=== PATIENT | male | born 1975 | race Hispanic/Latino ===

== ENCOUNTER → 2020-03-12 | Outpatient (CLI) | payer BC, OTHER ==
[~2020-03-12] MED LIST: NAPROXEN250 MG PO; TIZANIDINE HCL4 MG PO
== END ==
LOC: RAD 05:00 → EDSTATUS 03-15 06:30
PROVIDERS: ATTEND Physical Medicine & Rehabilitation Pain Medicine
DX: Z01.818 Encounter for other preprocedural examination (principal); M47.896 Other spondylosis, lumbar region; Z53.8 Procedure and treatment not carried out for other reasons; Z11.59 Encounter for screening for other viral diseases
CPT/HCPCS: 93005; U0002